=== PATIENT | male | born 1990 ===

== ENCOUNTER 2021-03-13 10:44 | Emergency (ER) | payer OTHER ==
--- NOTE | 2021-03-13 11:45 | RAD REPORT ---
EXAM DESCRIPTION: RAD - Chest Single View - 03/13/2021 11:06 am CLINICAL HISTORY: unresponsive, overdose COMPARISON: None TECHNIQUE: AP portable chest image was obtained 03/13/2021 11:06 am . FINDINGS: Lungs are clear. Heart and vasculature are normal. No measurable pleural effusion and no p neumothorax. No acute bony abnormality seen. No acute aortic findings suspected. IMPRESSION: No acute cardiopulmonary process.
[2021-03-13] MEDS ORDERED: NA CHLORIDE 0.9% 1,000 ML ONE (12:16)
[2021-03-13 12:17] LABS: Absolute Lymphocytes (CBC) 1.1 K/uL (0.7-4.9); Basophils % 0.4 % (0-1.3); Hematocrit 43.1 % (39.6-49.0); Lymphocytes % 15.5 % (15.3-44.8); MPV 8.8 fL (7.6-11.3); RBC Red Blood Cell Count 4.75 M/uL (4.33-5.43)
[2021-03-13 12:20] LABS: Protime INR 0.97
[2021-03-13 12:23] LABS: ALT/SGPT 69 U/L (12-78); AST/SGOT 42 U/L (15-37); Albumin 3.9 g/dL (3.4-5.0); Alkaline Phosphatase 69 U/L (45-117); BUN Blood Urea Nitrogen 14 mg/dL (7-18); Bicarbonate 29 mmol/L (21-32); Bilirubin Direct < 0.1 mg/dL (0-0.2); Bilirubin Total 0.3 mg/dL (0.2-1.0); Glucose Level 114 mg/dL (74-106); Potassium 4.3 mmol/L (3.5-5.1); Protein, Total 7.1 g/dL (6.4-8.2); Sodium Level 141 mmol/L (136-145); Troponin (Emerg Dept Use Only) < 0.02 ng/mL (0.0-0.045)
--- NOTE | 2021-03-13 13:10 | ER ---
Nurse's Notes [facility] Name: Marco Avitia Age: 30 yrs Sex: Male : 1990 Arrival Date: 03/13/2021 Time: 10:44 Bed 2 Private MD: Diagnosis: Altered mental status, unspecified;Possible drug overdose Presentation: 03/13 10:45 Chief complaint: EMS states: were toned out for cardiac arrest, CPR was done for 1-2 iw min, upon EMS arrival AED advised no shock, pulses present, EMS administered a total of 4 mg Narcan, pt now A\\T\\OX3, VSS, drug paraphernalia was found in pt pocket but pt denies drug use. Coronavirus screen: At this time, the client does not indicate any symptoms associated with coronavirus-19. Ebola Screen: Patient negative for fever greater than or equal to 101.5 degrees Fahrenheit, and additional compatible Ebola Virus Disease symptoms Patient denies exposure to infectious person. Patient denies travel to an Ebola-affected area in the 21 days before illness onset. No symptoms or risks identified at this time. Onset of symptoms was March 13, 2021. 10:45 Method Of Arrival: EMS iw 10:45 Acuity: LUKE 3 iw 12:08 Initial Sepsis Screen: Does the patient meet any 2 criteria? No. Patient's initial jd3 sepsis screen is negative. Does the patient have a suspected source of infection? No. Patient's initial sepsis screen is negative. Risk Assessment: Do you want to hurt yourself or someone else? Patient reports no desire to harm self or others. Historical: - Allergies: 10:50 No Known Allergies; iw - Home Meds: 10:50 None [Active]; iw - PMHx: 10:50 None; iw - PSHx: 10:50 None; iw - Immunization history:: Adult Immunizations unknown. - Family history:: not pertinent. - Social history:: Smoking status: unknown. - Hospitalizations: : No recent hospitalization is reported. Screenin:07 Abuse screen: Denies threats or abuse. Nutritional screening: No deficits noted. jd3 Tuberculosis screening: No symptoms or risk factors identified. Fall Risk Ambulatory Aid- None/Bed Rest/Nurse Assist (0 pts). Gait- Normal/Bed Rest/Wheelchair (0 pts) Mental Status- Oriented to own ability (0 pts). Total Gilman Fall Scale indicates No Risk (0-24 pts). Assessment: 12:07 General: Appears in no apparent distress. comfortable, Behavior is calm, cooperative, jd3 appropriate for age. Pain: Denies pain. Neuro: Level of Consciousness is awake, alert, obeys commands, Oriented to person, place, time, situation, Reports "black out". Cardiovascular: Denies chest pain, Capillary refill < 3 seconds Patient's skin is warm and dry. Rhythm is regular. Respiratory: Airway is patent Respiratory effort is even, unlabored, Respiratory pattern is regular, symmetrical, Denies cough, shortness of breath. GI: No signs and/or symptoms were reported involving the gastrointestinal system. : No signs and/or symptoms were reported regarding the genitourinary system. EENT: No signs and/or symptoms were reported regarding the EENT system. Derm: Skin is intact, Skin is dry, Skin is pale, Skin temperature is warm. Musculoskeletal: Circulation, motion, and sensation intact. Range of motion: intact in all extremities. 13:00 Reassessment: Patient appears in no apparent distress at this time. No changes from hb previously documented assessment. Patient and/or family updated on plan of care and expected duration. Pain level reassessed. 13:21 Reassessment: Patient appears in no apparent distress at this time. No changes from jd3 previously documented assessment. Patient and/or family updated on plan of care and expected duration. Pain level reassessed. Patient is alert, oriented x 3, equal unlabored respirations, skin warm/dry/pink. Overdose: 12:08 [place] Suicide Severity Screening: "In the past month, have you wished you were jd3 or wished you could go to sleep and not wake up?" Patient responds "no." "In the past month, have you actually had any thoughts of killing yourself?" Patient responds "no." "In your lifetime, have you ever done anything, started to do anything, or prepared to do anything to end your life?" Patient responds "no.". 13:41 [place] Suicide Severity Screening: "In the past month, have you wished you were iw or wished you could go to sleep and not wake up?" Patient responds "no." Patient responds "yes." Based off client's responses, additional C-SSRS screening questions required. 13:41 [place] Suicide Severity Screening: "In the past month, have you actually had any iw thoughts of killing yourself?" Patient responds "yes." Based off client's responses, additional C-SSRS screening questions required. Vital Signs: 10:51 Pulse 75; Resp 16; Pulse Ox 97% on R/A; iw 13:00 BP 119 / 80; Pulse 79; Resp 15; Pulse Ox 100% on R/A; hb 13:21 BP 97 / 74; Pulse 79; Resp 17 S; Pulse Ox 100% on R/A; jd3 ED Course: 10:44 Patient arrived in ED. iw 10:45 Herman Alas MD is Attending Physician. rn 10:50 Triage completed. iw 10:50 Arm band placed on. iw 11:06 XRAY Chest (1 view) In Process Unspecified. EDMS 11:52 [place], RN is Primary Nurse. jd3 12:06 Inserted saline lock: 22 gauge in right antecubital area, using aseptic technique. jd3 Blood collected. placed by Agendia. 12:08 Patient has correct armband on for positive identification. Placed in gown. Bed in low jd3 position. Side rails up X2. Adult w/ patient. longterm guards at bedside and escorting pt. 13:38 No provider procedures requiring assistance completed. IV discontinued, intact, jd3 bleeding controlled, No redness/swelling at site. Pressure dressing applied. Administered Medications: 12:06 Drug: NS 0.9% 1000 ml Route: IV; Rate: 1000 ml; Site: right antecubital; jd3 Outcome: 13:09 Discharge ordered by . rn 13:24 Discharged to Law Enforcement 13:24 Condition: stable 13:24 Discharge instructions given to patient, Instructed on discharge instructions, follow up and referral plans. Demonstrated understanding of instructions, follow-up care. 13:41 Patient left the ED. iw Signatures: Dispatcher [employer] EDMS Gale Mazariegos RN RN Herman Alas MD MD rn Baxter, Heather, RN RN hb Davies, Jonathon, TAMAR RN jd3 Corrections: (The following items were deleted from the chart) 13:38 13:38 [place] Suicide Severity Screening: "In the past month, have you wished you were jd3 or wished you could go to sleep and not wake up?" Patient responds "yes." Based off client's responses, additional C-SSRS screening questions required. jd3
--- NOTE | 2021-03-13 13:10 | EDPHYS ---
Physician Documentation [facility] Name: Marco Avitia Age: 30 yrs Sex: Male : 1990 Arrival Date: 03/13/2021 Time: 10:44 Bed 2 Private MD: ED Physician Herman Alas HPI: 03/13 11:03 This 30 yrs old Unknown Male presents to ER via EMS with complaints of Overdose. rn 11:03 The patient presents to the emergency department with a possible overdose. Context:. rn Associated signs and symptoms: Pertinent positives: decreased level of consciousness, Pertinent negatives: auditory hallucinations, incontinence, shortness of breath, visual hallucinations, vomiting. Severity of symptoms: At their worst the symptoms were moderate in the emergency department the symptoms have improved. It is unknown whether or not the patient has had similar symptoms in the past. The patient has not recently seen a physician. Brought in from retirement, suspected overdose, found minimally responsive with slow pulse and slow breathing, bystanders started CPR but do not think that patient lost a pulse, EMS arrived, noted slow pulse and respirations given multiple doses of Narcan with resolution and patient awake. Patient found with drug paraphernalia but denies using any drugs today. Patient states feels normal right now and denies any focal symptoms. Denies recent illness.. Historical: - Allergies: 10:50 No Known Allergies; iw - Home Meds: 10:50 None [Active]; iw - PMHx: 10:50 None; iw - PSHx: 10:50 None; iw - Immunization history:: Adult Immunizations unknown. - Family history:: not pertinent. - Social history:: Smoking status: unknown. - Hospitalizations: : No recent hospitalization is reported. ROS: 11:03 Constitutional: Negative for fever, chills, and weight loss, Eyes: Negative for injury, rn pain, redness, and discharge, ENT: Negative for injury, pain, and discharge, Neck: Negative for injury, pain, and swelling, Cardiovascular: Negative for chest pain, palpitations, and edema, Respiratory: Negative for shortness of breath, cough, wheezing, and pleuritic chest pain, Abdomen/GI: Negative for abdominal pain, nausea, vomiting, diarrhea, and constipation, Back: Negative for injury and pain, : Negative for injury, bleeding, discharge, and swelling, MS/Extremity: Negative for injury and deformity, Skin: Negative for injury, rash, and discoloration, Neuro: Negative for headache, weakness, numbness, tingling, and seizure. 11:03 All other systems are negative. Exam: 11:03 Constitutional: This is a well developed, well nourished patient who is awake, alert, rn and in no acute distress. Appears pale Head/Face: Normocephalic, atraumatic. Eyes: Pupils equal round and reactive to light, extra-ocular motions intact. Lids and lashes normal. Conjunctiva and sclera are non-icteric and not injected. Cornea within normal limits. Periorbital areas with no swelling, redness, or edema. ENT: No stridor Cardiovascular: Regular rate and rhythm. No pulse deficits. Respiratory: Speaking full sentences, unlabored. No increased work of breathing, no retractions or nasal flaring. Abdomen/GI: Soft, non-tender Skin: Warm, dry, no cyanosis MS/ Extremity: Pulses equal, no cyanosis. Neurovascular intact. Full, normal range of motion. Equal circumference. Neuro: Awake and alert, GCS 15, oriented to person, place, time, and situation. Cranial nerves II-XII grossly intact. Motor strength 5/5 in all extremities. Sensory grossly intact. Cerebellar exam normal. Vital Signs: 10:51 Pulse 75; Resp 16; Pulse Ox 97% on R/A; iw 13:00 BP 119 / 80; Pulse 79; Resp 15; Pulse Ox 100% on R/A; hb 13:21 BP 97 / 74; Pulse 79; Resp 17 S; Pulse Ox 100% on R/A; jd3 MDM: 10:45 Patient medically screened. rn 11:29 Data interpreted: pvc monitor: rate is 94 beats/min, rhythm is normal sinus rhythm, rn regular, with no ectopy, Interpretation: normal rate, normal rhythm, Pulse oximetry: on room air is 96 %. Interpretation: normal. 13:05 Differential diagnosis: over medication, Overdose, syncope. Data reviewed: vital signs, rn nurses notes, lab test result(s), EKG, radiologic studies, plain films, and as a result, I will discharge patient. Test interpretation: by ED physician or midlevel provider: ECG, plain radiologic studies, Chest x-ray clear of infiltrate, no pneumothorax. Counseling: I had a detailed discussion with the patient and/or guardian regarding: the historical points, exam findings, and any diagnostic results supporting the discharge/admit diagnosis, lab results, radiology results, the need for outpatient follow up, to return to the emergency department if symptoms worsen or persist or if there are any questions or concerns that arise at home. Response to treatment: the patient's symptoms have resolved after treatment, and as a result, I will discharge patient. Special discussion: I discussed with the patient/guardian in detail that at this point there is no indication for admission to the hospital. It is understood, however, that if the symptoms persist or worsen the patient needs to return immediately for re-evaluation. ED course: Patient back to baseline, no acute findings here in ER. No ectopy on monitor, no oxygen requirement, no ischemia on ECG. Marked improvement and resolution of decreased level of consciousness after Narcan administration, found with paraphernalia, most likely overdose, but patient will not tell me or nursing or EMS what he took or was possibly exposed to. Monitored here for a few hours since arrival, back to baseline will DC back to halfway. 03/13 10:45 Order name: Acetaminophen 03/13 10:45 Order name: Basic Metabolic Panel; Complete Time: 12:32 rn 03/13 10:45 Order name: CBC with Diff; Complete Time: 12:32 rn 03/13 10:45 Order name: ETOH Level; Complete Time: 12:32 rn 03/13 10:45 Order name: Hepatic Function; Complete Time: 12:32 rn 03/13 10:45 Order name: PT-INR; Complete Time: 12:32 03/13 10:45 Order name: Ptt, Activated; Complete Time: 12:32 rn 03/13 10:45 Order name: Salicylate rn 03/13 10:45 Order name: EKG; Complete Time: 10:46 rn 03/13 10:45 Order name: Troponin (emerg Dept Use Only); Complete Time: 12:32 rn 03/13 10:46 Order name: XRAY Chest (1 view); Complete Time: 11:50 rn 03/13 10:46 Order name: Acetaminophen Level; Complete Time: 12:32 EDMS 03/13 10:45 Order name: EKG - Nurse/Tech; Complete Time: 12:06 rn 03/13 10:45 Order name: IV Saline Lock; Complete Time: 11:52 rn 03/13 10:45 Order name: Labs collected and sent; Complete Time: :52 rn Administered Medications: 12:06 Drug: NS 0.9% 1000 ml Route: IV; Rate: 1000 ml; Site: right antecubital; jd3 Disposition Summary: 03/13/21 13:09 Discharge Ordered Location: Home rn Problem: new rn Symptoms: have improved rn Condition: Stable rn Diagnosis - Altered mental status, unspecified rn - Possible drug overdose rn Followup: rn - With: Private Physician - When: As needed - Reason: Recheck today's complaints, Re-evaluation by your physician Discharge Instructions: - Discharge Summary Sheet rn - Opioid Overdose rn Forms: - Medication Reconciliation Form rn - Thank You Letter rn - Antibiotic director of learning - Prescription Opioid Use rn Signatures: Dispatcher [employer] Gale Mirza, RN Herman Awan MD MD rn Davies, Jonathon RN RN jd3
[2021-03-13 14:11] VITALS: O2SAT 100
[2021-03-13 14:13] VITALS: BP 97/74
--- NOTE | 2021-03-14 07:33 | EKG ---
Test Date: 2021-03-13 Test Time: 12:02:04 Ward Service Supervisor: JERONIMO MEASUREMENT RESULTS: Intervals: Rate: 80 LA: 198 QRSD: 76 QT: 380 QTc: 438 [place]: P: 47 LA: 198 QRS: 93 T: 61 INTERPRETIVE STATEMENTS: Normal sinus rhythm Rightward axis Septal infarct, age undetermined Abnormal ECG No previous ECG available for comparison Electronically Signed On 03-14-21 07:31:11 CDT by Jg Rodríguez
== END 2021-03-13 13:41 | disposition home or self-care (01) ==
LOC: ER 10:44
DX: R41.82 Altered mental status, unspecified (principal)
CPT/HCPCS: 36415; 71045; 80048; 80076; 80320; 80329; 84484; 85025; 85610; 85730; 93005; 99284; J7030